=== PATIENT | male | born 1945 | race Caucasian/White ===

== ENCOUNTER 2016-10-24 10:19 | Day surgery (SDC) | payer OTHER ==
[~2016-10-24] VITALS: Ht 180.3 cm; Wt 86.2 kg
[~2016-10-24 10:19] MED LIST: ALBU6.7H INH; AMLO5TAB2 PO; ASPI-973 PO; ATOR10TA66 PO; DULO20CA18 PO; FLUT15.88 NS; GABA-504 PO; INSU100V7 SUBQ; LIPA1CAP PO; LISI40TA PO; METF1000 PO; MULT1CAP33 PO; NYST15CR TOPICAL; OMEP20TA86 PO; ONDA4SOL PO; PROP10TA8 PO; PSYL1000 MC; Sodium Chloride LOK Flush 10 mL Syringe IV PRN; TIOT18CA3 IH; Thiamine PO; fentaNYL-PF 50 mCg/mL 2 mL Inj IVPUSH PRN
[2016-10-24 10:44] VITALS: BP 143/63; PULSE 82; RESP 16; O2SAT 98
[2016-10-24] MEDS: 0.9% Sodium Chloride 1,000 ML IV SCH ×3 (10:57→12:00)
[2016-10-24 12:05] VITALS: BP 106/52; PULSE 63; RESP 14; O2SAT 96
[2016-10-24 12:15] VITALS: BP 136/51; PULSE 66; RESP 14; O2SAT 96
[2016-10-24 12:25] VITALS: BP 144/61; PULSE 67; RESP 14; O2SAT 94
--- NOTE | 2016-10-24 23:21 | ENDO ---
[address] [address] ENDOSCOPY PROCEDURE PATIENT: ABBIE ALLEN : 1945 MR#: [id number] ADMIT: 10/24/2016 JOB ID: [id number] DATE: 10/24/2016 PRIMARY PROVIDER: Sri Lima. PROCEDURE: 1. Esophagogastroduodenoscopy with biopsy. 2. Colonoscopy with cold forceps polypectomies. INDICATIONS: A 71-year-old male with a remote history of melena long since resolved many months ago. He was on NSAIDs at the time. He additionally has had a change in bowel habit. Both EGD and colonoscopy are thus pursued. EQUIPMENT: GIF H 180 J and a PCF H 190 DL. SEDATION: 6 mg Versed and 125 mcg fentanyl. COMPLICATIONS: None identified. BOWEL PREPARATION: Fair, adequate exam. PROCEDURE INFORMATION: After the risks and benefits were explained, written and verbal informed consent was obtained. The patient was brought into the endoscopy suite and placed into the left lateral decubitus position. Sedation was achieved using the above-stated medications with the addition of oxygen via nasal cannula. The scope was introduced into the mouth through the bite block, and advanced under direct visualization through the oropharynx, esophagus, stomach, and onto the corner between the 1st and 2nd portion of the duodenum. The scope was slowly withdrawn to carefully examine the mucosa for any defects or lesions. Retroflexed views were accomplished in the stomach, the stomach was decompressed, scope removed from the patient who tolerated the procedure well. The patient was then turned around. A digital rectal examination accomplished. Mild internal hemorrhoids noted. The scope was introduced into the rectum and advanced under direct visualization to the level of the cecum, as identified by the appendiceal orifice and ileocecal valve. The scope was slowly withdrawn to carefully examine the mucosa for any defects or lesions. Retroflexed views were accomplished in the rectum. The colon was decompressed. The scope removed from the patient who tolerated the procedure well. FINDINGS: 1. Duodenum: No mucosal pathology identified from the bulb through to nearly the second portion. The patient had a very long stomach and most of the scope was used to just arrive in the duodenum. It was a fairly acute corner to get around into D2, and the scope simply did not want to traverse this region. I did not see any stricturing or mass lesions or ulcers. 2. Stomach: No outlet obstruction. No ulcers. Gastropathy was appreciated throughout with some scattered erosive changes, probably consistent with aspirin use. Biopsy was taken x2 for exclusion of Helicobacter or any other underlying pathology. Otherwise, retroflexed views of the LES were rather unremarkable. 3. Esophagus: The squamocolumnar junction correlated with the top of the gastric folds for the most part. The GE junction was at 46 cm from the incisors. In the 5 o'clock location, there was a very narrow perhaps 2-3 mm tongue of Case's that went up into the proximal esophagus by about 1-2 cm. This area was targeted for biopsy to exclude specialized intestinal metaplasia. The remainder of the esophagus was unremarkable. 4. Colon: The patient had a rather tortuous sigmoid region. No mass lesions, however. No strictures. No proctitis. No colitis. There were a couple of small polyps removed with cold forceps from the left colon. Retroflexed views were rather unremarkable. ENDOSCOPIC DIAGNOSES: 1. Mild erosive gastropathy. 2. 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 3. Colonic diverticulosis. 4. Hemorrhoids. 5. Colon polyps. RECOMMENDATIONS: 1. Await histopathology. 2. Attempt to stop smoking. 3. The patient is encouraged to incorporate fiber into his regular routine for soft, regular bowel movements. 4. Repeat colonoscopy in five years if these polyps are confirmed adenomatous.
--- NOTE | 2016-10-25 13:33 | PATH ---
SURGICAL PATHOLOGY Attending Physician:Montserrat Montgomery CASE STATUS: Signed Out PATIENT NAME: ABBIE ALLEN PID: [id number] : 1945 DATE COLLECTED:10/24/2016 00:00 SPECIMEN: 1: Esophagus, Biopsy 2: Gastric, Biopsy 3: Colon, Biopsy CLINICAL HISTORY: 1). DISTAL ESOPHAGUS BIOPSY 2). GASTRIC BIOPSY 3). LEFT COLON POLYPS FINAL DIAGNOSIS: 1.DISTAL ESOPHAGUS BIOPSY: SQUAMOUS MUCOSA AND GASTRIC CARDIA-TYPE MUCOSA NEGATIVE FOR SPECIALIZED METAPLASIA OF FONSECA' S-TYPE ESOPHAGUS. Negative for dysplasia and malignancy. Eosinophils are not increased. 2.GASTRIC BIOPSIES: FRAGMENTS OF ANTRAL AND FUNDIC MUCOSA NEGATIVE FOR SIGNIFICANT INFLAMMATION. Negative for evidence of Helicobacter. Negative for intestinal metaplasia. Negative for dysplasia and malignancy. 3.LEFT COLON POLYPS: TUBULAR ADENOMA INVOLVING BOTH BIOPSY FRAGMENTS. ICD10 CODE D12.4 GROSS DESCRIPTION: The specimen is received in three formalin filled containers labeled with the patient's name. 1). The specimen is sublabeled "distal esophagus" and consists of a less than 0.1 CM portion of tissue which is entirely submitted in cassette 1A. 2). The specimen is sublabeled "gastric" and consists of 2 portions of tissue which aggregate to 0.2 x 0.2 x 0.2 CM. The specimen is entirely submitted in cassette 2A. 3). The specimen is sublabeled "left colon polyps" and consists of 2 portions of tissue which aggregate to 0.3 x 0.3 x 0.2 CM. The specimen is entirely submitted in cassette 3A. 10/25/2016 [facility] MICRO DESCRIPTION: See diagnosis. ICD-9 CODES: CPT CODES: 1: 27658 2: 98100 3: 69085 Electronically Signed Out Juan Mckinley MD [facility] Pathology [facility] [address], [place] [address] Technical component performed at [facility], [facility] [address], [place], [address]
== END 2016-10-24 23:59 | disposition home or self-care (01) ==
LOC: END 10:19
PROVIDERS: ATTEND Internal Medicine Gastroenterology
DX: D12.4 Benign neoplasm of descending colon (principal); K57.30 Diverticulosis of large intestine without perforation or abscess without bleeding; K64.8 Other hemorrhoids; K92.1 Melena; K31.9 Disease of stomach and duodenum, unspecified; R19.4 Change in bowel habit; E11.9 Type 2 diabetes mellitus without complications; I10 Essential (primary) hypertension; F17.210 Nicotine dependence, cigarettes, uncomplicated; Z79.82 Long term (current) use of aspirin; Z79.4 Long term (current) use of insulin; Z79.899 Other long term (current) drug therapy